=== PATIENT | male | born 1950 | race African-American/Black ===

== ENCOUNTER 2025-02-10 07:48 | Emergency (ER) | payer OTHER, MEDICARE ==
[~2025-02-10] VITALS: Ht 172.7 cm; Wt 68.0 kg
[2025-02-10 07:52] VITALS: O2SAT 99
[2025-02-10 08:23] LABS: BASOPHILS % 0.4 % (0.0-2.0); EOSINOPHILS % 0.8 % (0.0-5.0); HEMATOCRIT. 47.8 % (42.0-52.0); HEMOGLOBIN. 15.7 g/dL (14.0-18.0); LYMPHOCYTES % 16.2 % (20.0-50.0); MEAN PLATELET VOLUME 8.6 fl (7.4-10.4); MONOCYTES % 9.6 % (2.0-8.0); NEUTROPHILS % 73.0 % (40.0-76.0); PLATELET 147 x1000/uL (130-400); RED BLOOD CELL COUNT 5.12 mill/uL (4.7-6.1); RED CELL DISTRIBUTION WIDTH 15.0 % (11.6-14.6)
[2025-02-10] MEDS: SODIUM CHLORIDE 0.9% (SEPSIS BOLUS) IV ONE (08:25)
[2025-02-10] MEDS: VANCOMYCIN 1G PREMIX 200 ML IV ONE (08:26)
[2025-02-10 08:39] LABS: CREATININE 1.5 mg/dL (0.6-1.3); UREA NITROGEN BLOOD 25 mg/dL (9-23)
[2025-02-10 08:41] LABS: ASPARTATE AMINOTRANSFERASE 55 IU/L (<34)
[2025-02-10 08:42] LABS: BILIRUBIN DIRECT 0.7 mg/dL (<=3.0); BILIRUBIN TOTAL 1.8 mg/dL (0.1-1.0); PROTEIN TOTAL 7.2 g/dL (6.0-8.3)
[2025-02-10] MEDS: MEROPENEM 1G/100ML 100 ML IV ONE (10:02)
[2025-02-10 10:30] VITALS: TEMP 36.8
[2025-02-10] MEDS ORDERED: HYDROCODONE/ACETAMINOPHEN 5/325MG TABLET PO PRN (11:15)
[2025-02-10] MEDS ORDERED: ACETAMINOPHEN 325MG TABLET PO PRN (11:15)
[2025-02-10] MEDS ORDERED: MAGNESIUM/ALUMINUM HYDROXIDE/SIMETHICONE 30ML UDC PO PRN (11:15)
[2025-02-10] MEDS ORDERED: ONDANSETRON HCL 4MG/2ML INJ IV PRN (11:15)
[2025-02-10] MEDS ORDERED: MORPHINE SULFATE 2 MG/ML INJ (NOT FOR IM USE) IV PRN (11:15)
[2025-02-10] MEDS ORDERED: CLONIDINE 0.1MG TABLET PO PRN (11:15)
[2025-02-10] MEDS: POTASSIUM CHLORIDE 20MEQ/PACKET PO ONE (12:04)
[2025-02-10] MEDS: SODIUM CHLORIDE 0.9% 1,000 ML IV SCH (12:04)
[2025-02-10] MEDS: ENOXAPARIN 40MG/0.4ML SYR SUBCUT SCH (12:08)
[2025-02-10] MEDS ORDERED: MEROPENEM 1G/100ML 100 ML IV SCH (13:00)
[2025-02-10 13:30] VITALS: BP 121/88; PULSE 112; RESP 32; O2SAT 97
[2025-02-10] MEDS ORDERED: ZOLPIDEM TARTRATE 5MG TABLET PO PRN (21:00)
[2025-02-11] MEDS ORDERED: VANCOMYCIN 1GM PMX (XELLIA) 200 ML IV SCH (08:00)
[2025-02-11] MEDS ORDERED: PANTOPRAZOLE SODIUM 40 MG/VIAL IV SCH (09:00)
== END 2025-02-10 14:00 | disposition short-term general hospital (02) ==
LOC: ER 08:39 → CANBEDREQ 10:23 → ENRESERV 13:58 → ER 14:00 → CANBEDREQ 14:08
DX: A41.9 Sepsis, unspecified organism (principal); R65.20 Severe sepsis without septic shock; I10 Essential (primary) hypertension; Z86.73 Personal history of transient ischemic attack (TIA), and cerebral infarction without residual deficits; Z79.899 Other long term (current) drug therapy; Z88.0 Allergy status to penicillin
CPT/HCPCS: 80076; 80048; 82962; 83605; 85025; 87040; 36415; 84145; 71045; 93970; 93005; 96368; 96361; 96365; 96366; 96372; 99291; J1650; J2185; J3373; J7030; Z7610